=== PATIENT | male | born 1960 | race African-American/Black ===

== ENCOUNTER 2017-07-05 12:27 | Emergency (ER) | payer BC ==
[~2017-07-05] VITALS: Ht 182.9 cm; Wt 87.1 kg
[2017-07-05 12:32] VITALS: BP 127/65; PULSE 95; RESP 18; TEMP 98.4; O2SAT 98
[2017-07-05] MEDS ORDERED: DEXAMETHASONE SOD PHOS 20 MG/5 ML VIAL IM ONE (13:00)
[2017-07-05] MEDS ORDERED: MEDR4PAK PO (13:06)
--- NOTE | 2017-07-05 13:13 | PD ---
HPI Chief Complaint: Musculoskeletal Complaint Time Seen by Provider: 12:46 Travel History International Travel<30 days: No Contact w/Intl Traveler<30days: No Traveled to known affect area: No History of Present Illness HPI Patient comes to the emergency department of chronic pain in his left thumb ongoing for 5 months. Patient denies any injury or fevers. Patient reports he has been doing physical therapy however continues to have the pain. Patient reports that he received injections in his back secondary to finding having some degenerative disc with no improvement of pain. Patient is waiting to see a neurologist. Describes pain as a stabbing pain. Pain radiates proximally. Pain is worse with trying to grab anything, certain positions of the shoulders, and movement of his thumb. Patient denies taking any medication for this. Denies anything making the pain better. Patient is right-hand dominant. PFSH Past Medical History Musculoskeletal: Yes (CHRONIC NECK PAIN) Influenza Vaccination: No Social History Alcohol Use: No Tobacco Use: No Substance Use: No Allergies-Medications (Allergen,Severity, Reaction): Coded Allergies: No Known Allergies (Unverified , 07/05/17) Reported Meds & Prescriptions Reported Meds & Active Scripts Active Medrol Dosepak (Methylprednisolone) 4 Mg Dspk 4 Mg PO DIRECTED Per Pharmacist direction Review of Systems Except as stated in HPI: all other systems reviewed are Neg Physical Exam Narrative GENERAL: Well-developed, overly nourished, in no acute distress, and non-ill appearing. SKIN: Focused skin assessment warm and dry. HEAD: Atraumatic. Normocephalic. EYES: Pupils equal and round. EOMI. No scleral icterus. No injection or drainage. ENT: No nasal bleeding or discharge. Mucous membranes pink and moist. NECK: Trachea midline. Supple. No nuclear rigidity. CARDIOVASCULAR: Radial pulses 2+, intact, and equal bilaterally. Capillary refill less than 2 seconds RESPIRATORY: No accessory muscle use. No respiratory distress. MUSCULOSKELETAL: No obvious deformities. No clubbing. No cyanosis. No edema. Full range of motion. Patient reports tenderness to palpation over the left thumb. No crepitus or signs of infection. NEUROLOGICAL: Awake and alert. No obvious cranial nerve deficits. Motor grossly within normal limits. Normal speech. PSYCHIATRIC: Appropriate mood and affect; insight and judgment normal. Data Data Last Documented VS Vital Signs Date Time Temp Pulse Resp B/P (MAP) Pulse Ox O2 Delivery O2 Flow Rate FiO2 07/05/17 12:32 98.4 95 18 127/65 (85) 98 Orders Orders Dexamethasone Inj (Decadron Inj) (07/05/17 13:00) Ed Discharge Order (07/05/17 13:13) MDM Medical Decision Making Medical Screen Exam Complete: Yes Emergency Medical Condition: Yes Differential Diagnosis OA, RA, neuropathy, chronic pain Narrative Course There is no clinical evidence for fracture. There is no clinical evidence to suspect bony injury by exam. No obvious ligamental injury or internal derangement is noted at this time. The distal extremity appears neurovascularly intact, without evidence of neurovascular injury nor compartment syndrome. Tendon exam also was intact. The patient was discharged and given warnings for vascular compromise. The patient is to follow up with primary care provider and/ or hand surgeon. The patient agrees with plan. Patient in no obvious distress upon re-evaluation. Patient was asked if they wanted to speak to my attending, which the patient did not wish to do at this time. Any questions/concerns in reference to patient diagnosis/condition discussed and clarified prior to patient's discharge. Reinforced sheer importance of close follow up with patient's primary physician or primary care clinic and/or hand surgeon. Instructed patient to return to ED immediately, if symptoms return/worsen. Patient showed understanding of above instructions. Further instructions and recommendations were detailed in discharge paperwork. Patient ambulated without difficulty out of ED at discharge. Diagnosis Primary Impression: Chronic pain of left thumb Referrals: Ortgea Chaves III, MD Patient Instructions: Arthralgia (ED), General Instructions Additional Instructions: Follow-up with your primary care physician and/or hand specialist in 3-5 days for reevaluation. Take all medication as prescribed. Return to the emergency department if symptoms get worse. Med/Other Pt SpecificInfo: Prescription(s) given Scripts Methylprednisolone Dosepak (Medrol Dosepak) 4 Mg Dspk 4 MG PO DIRECTED, #1 DSPK 0 Refills Per Pharmacist direction Prov: Chai Babcock MD 07/05/17 Disposition: 01 DISCHARGE HOME Condition: Stable Harman Mccall Jul 05, 2017 13:13
== END 2017-07-05 13:28 | disposition home or self-care (01) ==
LOC: PHEFT 12:27
DX: M79.645 Pain in left finger(s) (principal); G89.29 Other chronic pain
CPT/HCPCS: 96372; 99283; J1100

== ENCOUNTER → 2017-08-18 | Day surgery (SDC) | payer BC ==
[~2017-08-18] VITALS: Ht 185.4 cm; Wt 84.0 kg
[~2017-08-18] MED LIST: *MEPERIDINE 25 MG INJ VIAL PERIprocedural Use ONLY ONE; BUPIVACAINE HCL PF 0.5% 10 ML VIAL ONE; CEPH-460 PO; CHLORHEXIDINE GLUCONATE 2 % 1 PACK (2 CLOTHS) TOPICAL PRN; FAMOTIDINE 20 MG/2 ML VIAL ONE; HYDR-3288 PO; LACTATED RINGER'S 1000 ML IV PRN; LIDOCAINE HCL 2% 50 ML VIAL ONE; METOPROLOL TARTRATE 25 MG TAB PO PRN; MIDAZOLAM HCL 2 MG/2 ML VIAL ONE; NEOMYCIN/POLYMYXIN 1 ML G.U. IRRIGANT ONE; POVIDONE IODINE 5% (ANTISEPSIS KIT) 4 APPLICATIONS EACH NARE PRN; SODIUM CHLORID 0.9% 500 ML IV PRN; ceFAZolin 1,000 MG/NS 100 ML IV SCH; ceFAZolin INJ 1,000 MG VIAL ONE
[2017-08-18 10:55] VITALS: PULSE 77
[2017-08-18 11:45] VITALS: PULSE 65; TEMP 97.8
--- NOTE | 2017-08-18 12:30 | MP ---
cc: Ortega Chaves MD DATE OF OPERATION: 08/18/2017 PREOPERATIVE DIAGNOSIS: 1. Left carpal tunnel syndrome. 2. Left ulnar neuropathy at the elbow. 3. Left thumb trigger finger. PROCEDURE PERFORMED: 1. Left open carpal tunnel release. 2. Left thumb A1 be release. 3. Left ulnar nerve release at the elbow, in situ. SURGEON: Ortega Chaves III, MD PROCEDURE: The patient was brought to the operating room, placed supine on the operating table. After the correct site and side of surgery were verified by members of each team in the room multiple times including the patient, myself, and after adequate general anesthesia was achieved, the left upper extremity was prepped and draped in traditional sterile surgical fashion. A 50:50 mixture of 2% plain lidocaine, 0.5% plain Marcaine was infiltrated in the skin and subcutaneous tissue in areas of the planned incision. The limb was exsanguinated with Matias wrap. A highly placed well-padded axillary tourniquet was inflated to 200 mmHg for a total of 39 minutes. A longitudinally oriented incision at the base of the palm was made and carried down through skin and subcutaneous tissue. Blunt dissection was performed. Palmar fascia was retracted in opposite directions. The transverse carpal ligament was identified and divided ulnar to its midline in its entirety from its proximal-most to its distal most extent completely freeing the carpal tunnel and all of its contents. There is a moderately hypertrophic tenosynovium. There is no evidence of any other mass effect. Thorough irrigation with saline was performed. The skin edges were reapproximated using running 4-0 nylon suture. Attention was then paid to the left thumb. A ____ oriented incision within the skin crease was made at the MP flexion crease. Blunt dissection was performed. Blunt dissection down to the flexor tendon sheath was performed and a longitudinally oriented incision just at the area of the A1 be was made and then carried proximally through the entire A1 be, which was found to be very redundant and very tight around the flexor tendon. The flexor tendon was abraded but was otherwise completely intact. It was obviously severely constricted. There were no other anatomic abnormalities. Exploration proximally and distally did not reveal any other abnormal crossing bands of tissue. Thorough irrigation was performed. The neurovascular structures were noncompromised. Thorough irrigation was performed. The skin edges were reapproximated using running 4-0 nylon suture. Attention was then paid to the left elbow, which was placed on a bump at a 45-degree angle. Hockey stick shaped incision 3 cm in length was made, carried down through skin and subcutaneous tissue. Bipolar electrocautery was used as needed. Blunt dissection was performed down to the medial epicondyle. The ulnar nerve was then identified and dissected on one surface free from the cubital tunnel. It did appear to be clearly inflamed as it was erythematous for 4-5 cm length. It was still tethered at its original position, but it was decompressed from the arc[place] of [place] proximally to the bifurcation distally. Passive range of motion was full and did not reveal any evidence of subluxation at all. Small aponeurotic layer was loosely closed over it to protect it using 3-0 Vicryl sutures. Thorough irrigation with a liter's worth of saline was performed and the skin edges reapproximated using deep, 4-0 Vicryl sutures and then a running 4-0 nylon. The hand and arm were thoroughly cleansed and dried. Additional local anesthetic was injected deep at the elbow to provide for postoperative pain control. The axillary tourniquet was released prior to any closure of the elbow and the hand and arm became immediately soft, pink, warm with brisk capillary refill of less than 2 seconds. There is no bleeding or hematoma formation. The hand and arm were thoroughly cleansed and dried. Betadine, Adaptic dressings were applied on top of the wound followed by a bulky soft dressing then an Matias wrap from the palm to the proximal arm was made. The patient was awakened from anesthesia and transported to the postanesthesia care unit awake and in stable condition at the end of the case. The sponge, needle and instrument counts were correct at the end of the case as reported by nurses in the room. MD REY Palomino/TL/ , 11:28 AM , 12:09 PM
[2017-08-18 12:50] VITALS: BP 121/85; PULSE 62; RESP 16; O2SAT 98
== END | disposition home or self-care (01) ==
LOC: PHSDC 07:14
PROVIDERS: ATTEND Orthopaedic Surgery Hand Surgery
DX: G56.02 Carpal tunnel syndrome, left upper limb (principal); G56.22 Lesion of ulnar nerve, left upper limb; M65.312 Trigger thumb, left thumb
CPT/HCPCS: 01810; 26055; 64718; 64721; J0690; J2175; J2250; J3010; J7120